=== PATIENT | male | born 1975 | race African-American/Black ===

== ENCOUNTER 2018-11-30 18:35 | Emergency (ER) | payer BC, OTHER | END 2018-11-30 19:39 | disposition home or self-care (01) | LOC: ERS 18:35 | DX: J06.9 Acute upper respiratory infection, unspecified (principal); B30.9 Viral conjunctivitis, unspecified; E11.9 Type 2 diabetes mellitus without complications; E78.5 Hyperlipidemia, unspecified; I10 Essential (primary) hypertension | CPT/HCPCS: 87804; 99283 ==